=== PATIENT | female | born 1985 | race Caucasian/White ===

== ENCOUNTER 2016-12-10 12:08 | Emergency (ER) | payer SELFPAY ==
[2016-12-10 12:14] VITALS: BP 122/79
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
[2016-12-10] MEDS ORDERED: IBUPROFEN 800 MG TABLET PO ONE (12:54)
[2016-12-10] MEDS ORDERED: HYDROCODONE/ACETAMINOPHEN 5-325 MG TABLET PO ONE (12:54)
== END 2016-12-10 13:12 | disposition home or self-care (01) ==
LOC: ER 12:08
DX: S39.012A Strain of muscle, fascia and tendon of lower back, initial encounter (principal); Y04.2XXA Assault by strike against or bumped into by another person, initial encounter; F17.200 Nicotine dependence, unspecified, uncomplicated; Z90.710 Acquired absence of both cervix and uterus
CPT/HCPCS: 99283